=== PATIENT | female | born 1955 | race Caucasian/White ===

== ENCOUNTER 2023-01-06 19:02 | Emergency (ER) | payer OTHER ==
[~2023-01-06] VITALS: Ht 160 cm; Wt 65.0 kg
[2023-01-06 19:10] VITALS: O2SAT 99
[2023-01-06 21:02] LABS: BASOPHILS % 0.1 % (0.0-2.0); EOSINOPHILS % 0.1 % (0.0-5.0); HEMATOCRIT. 39.5 % (36.0-48.0); HEMOGLOBIN. 13.2 g/dL (12.0-16.0); LYMPHOCYTES % 13.2 % (20.0-50.0); MEAN CORPUSCULAR HEMOGLOBIN 31.6 pg (28.0-32.0); MEAN CORPUSCULAR HGB CONC 33.4 g/dL (31.0-37.0); MEAN CORPUSCULAR VOLUME 94.7 fL (81.0-99.0); MEAN PLATELET VOLUME 8.2 fl (7.4-10.4); NEUTROPHILS % 83.6 % (40.0-76.0); PLATELET 252 x1000/uL (130-400); RED BLOOD CELL COUNT 4.17 mill/uL (4.2-5.4); RED CELL DISTRIBUTION WIDTH 12.7 % (11.6-14.6); WHITE BLOOD COUNT 9.8 x1000/uL (4.5-11.0)
[2023-01-06 21:29] LABS: ALANINE AMINOTRANSFERASE 21 IU/L (10-49); ALBUMIN 4.6 g/dL (3.2-4.8); ASPARTATE AMINOTRANSFERASE 25 IU/L (<34); BILIRUBIN TOTAL 0.3 mg/dL (0.1-1.0); CALCIUM 9.9 mg/dL (8.7-10.4); CARBON DIOXIDE 27 mEq/L (21-32); CHLORIDE 106 mEq/L (98-107); CREATININE 0.8 mg/dL (0.6-1.0); GLUCOSE 117 mg/dL (70-105); POTASSIUM 4.2 mEq/L (3.5-5.1); PROTEIN TOTAL 7.7 g/dL (6.0-8.3); SODIUM 139 mEq/L (136-145); UREA NITROGEN BLOOD 9 mg/dL (9-23)
[2023-01-06 21:31] LABS: TROPONIN I HIGH SENSITIVITY < 4 ng/L (3.0-34)
[2023-01-07 02:22] LABS: TROPONIN I HIGH SENSITIVITY < 4 ng/L (3.0-34)
[2023-01-07] MEDS ORDERED: MAGNESIUM/ALUMINUM HYDROXIDE/SIMETHICONE 30ML UDC PO ONE (04:00)
[2023-01-07] MEDS ORDERED: FAMOTIDINE 20MG TABLET PO ONE (04:00)
[2023-01-07] MEDS ORDERED: ACETAMINOPHEN 325MG TABLET PO ONE (04:00)
[2023-01-07] MEDS ORDERED: ONDANSETRON 4MG ODT PO ONE (04:00)
[2023-01-07] MEDS ORDERED: FAMO40TA70 MT (05:16)
[2023-01-07 05:30] VITALS: BP 98/61; PULSE 79; RESP 13; TEMP 98.2
== END 2023-01-07 05:39 | disposition home or self-care (01) ==
LOC: ER 19:26
DX: R07.89 Other chest pain (principal); R11.2 Nausea with vomiting, unspecified; E78.00 Pure hypercholesterolemia, unspecified; I10 Essential (primary) hypertension
CPT/HCPCS: 99285; 71045; 80053; 83880; 83690; 85025; 84484 ×2; 93005; 36415; Q0162